=== PATIENT | female | born 1955 ===

== ENCOUNTER 2017-11-26 09:30 | Inpatient (IN) | payer BC ==
[2017-12-04] MEDS ORDERED: VANCOMYCIN HCL 1,000 MG in DEXTROSE 5 % IN WATER 250 ML IVPB ONE ×2 (06:00)
[2017-12-04] MEDS ORDERED: METOCLOPRAMIDE 10 MG TABLET PO ONE (06:00)
[2017-12-04] MEDS ORDERED: FAMOTIDINE 20MG TABLET PO ONE (06:00)
[2017-12-04] MEDS ORDERED: SCOPOLAMINE 1 PATCH TDSY TD ONE (06:00)
[2017-12-04] MEDS ORDERED: CELECOXIB 100 MG CAPSULE PO ONE (06:00)
[2017-12-04 13:04] LABS: ABO GROUP O; ANTIBODY SCREEN NEGATIVE (NEGATIVE); RH TYPE POSITIVE
[2017-12-04] MEDS ORDERED: MIDAZOLAM HCL 2MG/2ML VIAL IV ONE (14:00)
[2017-12-04] MEDS ORDERED: PROPOFOL 10 MG/ML VIAL IV ONE (14:00)
[2017-12-04] MEDS ORDERED: ONDANSETRON HCL IV 4 MG/2 ML VIAL IVP ONE (14:00)
[2017-12-04] MEDS ORDERED: PHENYLEPHRINE HCL 10 MG/ML VIAL IVP ONE (14:00)
[2017-12-04] MEDS ORDERED: *PACU ONLY* KETAMINE HCL 10 MG/ML (20ML) VIAL IV ONE (14:00)
[2017-12-04] MEDS ORDERED: ACETAMINOPHEN 325 MG TAB PO PRN (16:06)
[2017-12-04] MEDS ORDERED: BISACODYL 10 MG SUPP RC PRN (16:06)
[2017-12-04] MEDS ORDERED: KETOROLAC 30 MG/ML VIAL IVP PRN ×2 (16:06)
[2017-12-04] MEDS ORDERED: AL HYDROX/MAG HYDROX 30ML UD PO PRN (16:06)
[2017-12-04] MEDS ORDERED: MAGNESIUM HYDROXIDE 30 ML UDC PO PRN (16:06)
[2017-12-04] MEDS ORDERED: DIPHENHYDRAMINE HCL 25 MG CAPSULE PO PRN (16:06)
[2017-12-04] MEDS ORDERED: HYDROMORPHONE HCL 2 MG/ML VIAL IM PRN (16:06)
[2017-12-04] MEDS ORDERED: TRAMADOL HCL 50 MG TABLET PO PRN (16:06)
[2017-12-04] MEDS ORDERED: ONDANSETRON HCL IV 4 MG/2 ML VIAL IVP PRN (16:06)
[2017-12-04] MEDS ORDERED: NALOXONE 0.4 MG/1 ML VIAL IVP PRN (16:06)
[2017-12-04] MEDS ORDERED: ZOLPIDEM TARTRATE 5 MG TABLET PO PRN (16:06)
[2017-12-04] MEDS ORDERED: ACETAMINOPHEN W/ CODEINE 300MG/60MG TABLET PO PRN ×2 (16:06)
[2017-12-04] MEDS ORDERED: HYDROCODONE/APAP 10/325 TABLET PO PRN (16:06)
[2017-12-04] MEDS: HYDROCODONE/APAP 10/325 TABLET PO PRN (20:19)
[2017-12-04] MEDS: DOCUSATE SODIUM 100 MG CAPSULE PO SCH (21:32)
[2017-12-04] MEDS: PATIENT OWN MED: DULOXETINE 30 MG PO SCH (21:34)
[2017-12-04] MEDS: POTASSIUM CHLORIDE/D5-0.9%NACL 20 MEQ/1,000 ML BAG IV SCH (21:37)
[2017-12-05] MEDS: VANCOMYCIN HCL 1,000 MG in DEXTROSE 5 % IN WATER 250 ML IVPB SCH ×4 (01:18→12:06)
[2017-12-05] MEDS: POTASSIUM CHLORIDE/D5-0.9%NACL 20 MEQ/1,000 ML BAG IV SCH ×2 (01:39→06:47)
[2017-12-05] MEDS: HYDROCODONE/APAP 10/325 TABLET PO PRN ×4 (02:10→16:04)
[2017-12-05] MEDS ORDERED: PATIENT OWN MED: LEVOTHYROXINE 88 MCG PO SCH (07:00)
[2017-12-05 07:04] LABS: HEMOGLOBIN 10.8 gm/dl (11.6-16.0)
[2017-12-05 07:15] LABS: BLOOD UREA NITROGEN 11 mg/dL (8-23); CREATININE 0.7 mg/dL (0.5-0.9); EST GLOMERULAR FILTRATION RATE > 60 mL/min; GLUCOSE,RANDOM 110 mg/dL (74-109)
--- NOTE | 2017-12-05 09:55 | Operative Note ---
DATE: 12/04/2017. PREOPERATIVE DIAGNOSIS: END-STAGE ARTHROSIS OF THE LEFT HIP. POSTOPERATIVE DIAGNOSIS: END-STAGE ARTHROSIS OF THE LEFT HIP. PROCEDURE: Cementless left total hip arthroplasty using [employer] components, with a size 54 no-hole reflection cup, a size 14 high offset cementless [place] stem with a +4, 32 mm diameter Oxinium head, with a 32 mm diameter 35 degree offset liner. STAFF SURGEON: NIRANJAN DRUMMOND M.D. ANESTHESIA: SPINAL. PREPARATION: CHLORAPREP. INDIVIDUAL CONSIDERATIONS: NONE. PROCEDURE: The patient was taken to the Operating Room and placed supine on the operating table. She had successful induction with spinal anesthetic. She was then placed on her side, left side up, and her left leg and hip were prepped and draped in the usual fashion. The patient had a direct posterior approach to the hip. Sharp dissection carried down through the skin and subcutaneous tissues. Small veins were coagulated with a Bovie. The tensor gluteal fascia was opened along the entire length of the incision and deep retractors were placed. Short external rotators were identified, piriformis fossa and removed. This exposed the posterior capsule. A posterior capsulectomy was performed. The hip was dislocated posteriorly. The patient had basically exposed bone. A femoral neck cut was then made about a fingerbreadth above the lesser troch with an oscillating saw. A rim capsulectomy was performed. Starting with a 45 mm reamer to medialize, I went ahead and reamed to the introitus, which was 53 for a 54 cup. I slightly under-reamed to 52. I had good decent bleeding cancellous bone. I used a 54 liner in 20 degrees of forward flexion and 40 degrees of abduction using the extraarticular alignment guide and bony landmarks. There was solid cementless fixation. The center cap screw was placed and then I impacted a 35 degree offset liner with the offset posteriorly and inferiorly. This gave me an excellent stable acetabular construct and this was packed off. The proximal femur was delivered into the wound. A box-cutting osteotome was used to remove proximal metaphyseal bone. Mid-stem reaming was done to a size 14. I started feeling cortex at maybe 12. Broaching to 14, there was solid cementless fixation with the broach, calcar reaming with a high offset trial at +4, I had absolute stability. The trial was removed and after a thorough irrigation, I went ahead and impacted a size 14 high offset cementless [place] stem with solid cementless fixation and solid calcar contact. Again, after irrigation and drying the Sánchez taper, I impacted a +4, 32 mm diameter Oxinium head and reduced the hip. I had full anterior stability with full extension and external rotation. I had full posterior stability no matter where I put the hip in full flexion and rotation. The sciatic nerve was inspected and was completely intact. There was excellent hemostasis. I then went ahead and placed a gram of Tranexamic Acid with 30 mL of saline mixed deep to the fascia. The fascia was then closed with running #2 Quill. The subcu was closed in layers with #0 Quill. The skin was closed with yaw. Skin and subcutaneous tissues were infiltrated with 30 mL of 0.5% Marcaine with Epinephrine and a sterile [place] compressive IZAIAH-type dressing was applied. The patient tolerated the procedures well. Needle and sponge counts were correct. Estimated blood loss was about 300 mL. We will check her hemoglobin in the morning. There were no complications. JOB NUMBER: [id number] MTDD
[2017-12-05] MEDS ORDERED: PATIENT OWN MED: CETIRIZINE 10 MG PO SCH (10:00)
[2017-12-05] MEDS ORDERED: RIVAROXABAN 10 MG TABLET PO SCH (10:00)
[2017-12-05] MEDS ORDERED: FERROUS SULFATE 325 MG TAB PO SCH (10:00)
--- NOTE | 2017-12-05 10:31 | Rehab Evaluation ---
Patient Information - Patient Information Diagnosis: L hip DJD Ordered Treatment: PT Evaluate and Treat Status: Initial Evaluation Surgery: Yes Date of Surgery: 12/04/17 Past Medical/Surgical Hx: PAST MEDICAL/SURGICAL HISTORY Past Surgical History thyroid sx all but 5 percent removed appy ruptured ovary kidney stone removal PMH - Respiratory Hx Respiratory Disorders Yes Hx Asthma Yes: dx'd 2012 uses no inhalers Hx Bronchitis Yes Hx Pneumonia Yes Hx of SOB Yes: because of pain with exertion Comment: fx ribs from coughing 2012 PMH - Cardiovascular Hx Cardiovascular Disorders No Exercise Tolerance Poor PMH - Neuro Hx Neurological Disorders Yes Hx Neuropathy Yes: hands and feet PMH - GI Hx Gastrointestinal Disorders No PMH - Hx Genitourinary Disorders Yes Hx Age of Menopause 38 Hx Kidney Stones Yes PMH - Endocrine Hx Endocrine Disorders Yes Hx Thyroid Disease Yes: most of thyroid removed because it was overactive PMH - Musculoskeletal Hx Musculoskeletal Disorders Yes Hx Arthritis Yes: bilat hips PMH - Psych Hx Psychiatric Problems Yes Hx Anxiety Yes Hx Depression Yes PMH - Hematology/Oncology Hx Hematology/Oncology No Disorders Premorbid Status: Detail (Prior to surgery the patient was ambulatory with a 3 wheeled walker.) Social History: Detail (The patient lives alone in a one story home with 2 steps and two railings/handholds at the enterance. The patient's daughter will be staying with patient. The patient's bathroom is equipped with a walk in shower with a tub seat and grab bars and an elevated toilet without grab bars.) Precautions: [place], Fall, Other (THR precautions.) - Time With Patient Total Time Spent With Patient (Min): 30 Treatment Procedures: Detail (Initial Evaluation, gait training on levels and stairs.) Subjective Information - Subjective Information Per Patient (The patient had minimal complaints of L hip pain primarily with movement. The patient did not rate her pain using 0-10 pain scale.) Objective Data - Mental Status Patient Orientation: Oriented x3 - Visual Perception Appears within normal limits for therapeutic activities - ROM Not within normal limits (The patient's L LE is within Total Hip precautions. All other LE AROM is WNL.) - Strength/Tone Not within normal limits (The patient's L LE strength was not tested secondary to s/p surgery, however was generally 3/5 ( movement against gravity) in all musculature . The patient had difficulty completing a SLR to lift L LE out of bed, however hip pain with movement was limiting this motion. The patient's R LE strength was generally 4+ to 5/5.) - Bed Mobility Needs Assist (The patient initially required minimal assist lifting L LE with supine to and from sit but was able to acheive supine to and from sit independently with use of strap to lift L LE.) - Transfers Independent (Independent with sit to and from stand and toilet transfer.) - Balance Balance Sitting: Good Balance Standing: Good - Sensation Intact - Gait Detail (The patient ambulated independently WBAT on the L LE with 3 wheeled walker with brakes and wide wheels a distance of 105 feet x 1. The patient ambulated on 3 steps with use of one railing and folded walker with supervision for safety and using proper technique.) Therapy Assessment - Therapy Assessment Detail (The patient was independent with bed mobilty with use of strap to lift L LE, transfers and ambulation on levels and stairs. Patient safely followed all THR precautions and was independent with HEP. The patient is discharged from inpatient PT due to all goals have been met. Nursing staff was notified.) Patient Education - Patient Education Teaching Topic: Exercise/Activity (The patient was independent with THR HEP which included: quad set, gluteal sets, hamstring sets, ankle pumps, hip abduction supine, heel slides all x 5 reps.), Precautions (The patient was able to identify all 3 THR precautions without verbal cues.) Response: Return Demonstration Teaching Method: Discussion Teaching Recipient: Patient Barriers To Learning: None Problem List - Problem List Physical Therapy Problem List: Detail (Decreased L LE strength as to be expected following surgery.) Goals - Goals Physical Therapy Goals: All inpatient PT goals have been met. The patient is discharged from inpatient PT and is to receive Home PT. Prognosis - Prognosis Good Plan - Plan Physical Therapy Plan: The patient has met all inpatient PT goals and is discharged from inpatient PT and is to continue with Home PT.
[2017-12-05] MEDS: DOCUSATE SODIUM 100 MG CAPSULE PO SCH (10:51)
[2017-12-05] MEDS: PATIENT OWN MED: DULOXETINE 30 MG PO SCH (10:51)
[2017-12-05] MEDS ORDERED: BUPIVACAINE 0.5% W/EPI MPF 30 ML VIAL IVP ONE (10:51)
[2017-12-05] MEDS ORDERED: TRANEXAMIC ACID 1,000 MG/10 ML ML IV ONE ×2 (10:51→10:53)
[2017-12-05] MEDS ORDERED: 0.9 % SODIUM CHLORIDE 10 ML VIAL IVP ONE (10:53)
--- NOTE | 2017-12-05 11:15 | Rehab Evaluation ---
Patient Information - Patient Information Diagnosis: L hip DJD Ordered Treatment: OT Evaluate and Treat Status: Initial Evaluation Surgery: Yes Date of Surgery: 12/04/17 Past Medical/Surgical Hx: PAST MEDICAL/SURGICAL HISTORY Past Surgical History thyroid sx all but 5 percent removed appy ruptured ovary kidney stone removal PMH - Respiratory Hx Respiratory Disorders Yes Hx Asthma Yes: dx'd 2012 uses no inhalers Hx Bronchitis Yes Hx Pneumonia Yes Hx of SOB Yes: because of pain with exertion Comment: fx ribs from coughing 2012 PMH - Cardiovascular Hx Cardiovascular Disorders No Exercise Tolerance Poor PMH - Neuro Hx Neurological Disorders Yes Hx Neuropathy Yes: hands and feet PMH - GI Hx Gastrointestinal Disorders No PMH - Hx Genitourinary Disorders Yes Hx Age of Menopause 38 Hx Kidney Stones Yes PMH - Endocrine Hx Endocrine Disorders Yes Hx Thyroid Disease Yes: most of thyroid removed because it was overactive PMH - Musculoskeletal Hx Musculoskeletal Disorders Yes Hx Arthritis Yes: bilat hips PMH - Psych Hx Psychiatric Problems Yes Hx Anxiety Yes Hx Depression Yes PMH - Hematology/Oncology Hx Hematology/Oncology No Disorders Premorbid Status: Detail (Prior to surgery the patient was ambulatory with a 3 wheeled walker. Pt. was Ind. with all I/ADL's including self-care, driving, meal prep, and grocery shopping, but required some assistance d/t hip pain with tasks that require long distance mobility.) Social History: Detail (The patient lives alone in a one story home with 2 steps and two railings/handholds at the enterance. The patient's daughter ( Marily) will be staying with patient. The patient's bathroom is equipped with a walk in shower with a built in seat and grab bars and a 3-in-1 commode with handles. Other bathroom has an elevated toilet.) Precautions: [place], Fall, Other (Hip precautions.) - Time With Patient Total Time Spent With Patient (Min): 50 Treatment Procedures: Detail (OT mariam ribera. Session was concluded with daughter present to assist pt. with brushing teeth per pt request, with gait belt attached and use of 3 wheeled walker. Family was instructed to remove gait belt after pt. was seated again, and return to nurse's station. Staff were notified.) Subjective Information - Subjective Information Per Patient (Pt. stated has RUE bone spurs in RTC region, and bursitis. Pt. is L hand dominant. 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 reported pain in L hip with MMT, so was performed with caution (and seated EOB). RUE is 4+/5 (WNL) all planes.) - Coordination Appears within normal limits for therapeutic activities - Bed Mobility Needs Assist (Pt. and daughter declined with max attempts to trial bed mobility without use of bed rail and HOB raised. With these supports and use of leg aeronautical inspector, pt. ambulated from long sitting to SS EOB with min A from daughter. Educ. was provided in use of leg aeronautical inspector and bed mobility strategies; pt. and daughter stated daughter will be assisting as needed.) - Transfers Independent (sit<>stand seated EOB to 3 wheeled walker.) - Balance Balance Sitting: Good Balance Standing: Fair - Sensation Intact (Pt. reports occassional numbness in hands/fingers. Educ. provided in strategies to build up walker handles.) - ADL's/IADL's Detail (Educ. provided in adaptive dressing strategies with use of hip kit AE to apply hip precautions. Pt. returned demo. (modified Ind) and verbalized understanding to don/doff dress overhead, hospital elastic waist pants, and socks. Pt. plans to wear slip over dresses, no socks (just slip on slippers) and no undergarments during recovery at home. Pt. stated she prefers daughter to assist.) Therapy Assessment - Therapy Assessment Detail (In-pt. OT services not required at this time. Pt. would benefit from in- home OT eval to maximize Ind. and safety and assess envionmental set-up. Per manager case managementcompletion manager, Pt. will be receiving [facility] services. Pt' s daughter will be living with her during recovery to assist. Pt. stated she has a chiropractor assistant, long handled sponge and shoe horn from 's back injury to use.) Patient Education - Patient Education Teaching Topic: Equipment Use, Precautions Response: Return Demonstration, Verbalize Understanding Teaching Method: Discussion, Demonstration Teaching Recipient: Patient, Family (daughter) Barriers To Learning: Motivation (Pt. seems to prefer having daughter's assistance vs. maximizing Ind. at this time, but is also painful at this time.) Problem List - Problem List Physical Therapy Problem List: Detail (Decreased L LE strength as to be expected following surgery.) Goals - Goals Physical Therapy Goals: All inpatient PT goals have been met. The patient is discharged from inpatient PT and is to receive Home PT. Prognosis - Prognosis Good Plan - Plan Physical Therapy Plan: The patient has met all inpatient PT goals and is discharged from inpatient PT and is to continue with Home PT. Occupational Therapy Plan: D/C from in pt. OT services.
--- NOTE | 2017-12-05 17:51 | Discharge Summary ---
DATE OF ADMISSION: 12/04/2017. DATE OF DISCHARGE: 12/05/2017. DATE OF SURGERY: 12/04/2017. HISTORY: Torri is a delightful 62-year-old female who presented with endstage arthrosis of the left hip. She was admitted after left total hip arthroplasty. HOSPITAL COURSE: Postoperatively she did well. Her hospital course was unremarkable. LABS: Discharge hemoglobin was 10.8 and she did not require transfusion. PLAN: The plan is to discharge her to home in care of her family. DISCHARGE INSTRUCTIONS: Home physical therapy visiting nurse has been arranged. She will be given Shelley for pain and Xarelto followed by aspirin for deep venous thrombosis prophylaxis. Her visiting nurse will remove the sutures in two weeks, and she will follow up in my office in four weeks. FINAL DIAGNOSIS AND PRIMARY DIAGNOSIS: ENDSTAGE ARTHROSIS OF THE LEFT HIP. SECONDARY DIAGNOSIS: ACUTE OPERATIVE BLOOD LOSS ANEMIA. OPERATIONS AND PROCEDURES: CEMENTLESS LEFT TOTAL HIP ARTHROPLASTY. JOB NUMBER: [id number] MTDD
== END 2017-12-05 16:30 | disposition home health service (06) | DRG 470 ==
LOC: MEDSURG 12-04 12:01
PROVIDERS: ADMIT Orthopaedic Surgery; ATTEND Orthopaedic Surgery
PROC: 0SRB06A Replacement of Left Hip Joint with Oxidized Zirconium on Polyethylene Synthetic Substitute, Uncemented, Open Approach (ICD-10-PCS; principal; 2017-12-04 14:00)
DX: M16.12 Unilateral primary osteoarthritis, left hip (principal); E03.9 Hypothyroidism, unspecified
CPT/HCPCS: 80048; 85014; 85018; 86850; 86900; 86901; C1776; J1885; J2370; J2405; J3480; J7060